=== PATIENT | male | born 1970 | race American Indian/Alaskan Native ===

== ENCOUNTER → 2020-03-24 | Outpatient (CLI) | payer OTHER | END | disposition home or self-care (01) | LOC: SONOGRAMA 13:01 → EDBD 13:01 | PROVIDERS: ATTEND Specialist | DX: D11.0 Benign neoplasm of parotid gland (principal) ==

== ENCOUNTER 2020-04-03 08:33 | Outpatient (CLI) | payer OTHER | END 2020-04-03 08:52 | disposition home or self-care (01) | LOC: SONOGRAMA 08:33 | PROVIDERS: ATTEND Pathology Anatomic Pathology & Clinical Pathology | DX: D11.0 Benign neoplasm of parotid gland (principal) ==